=== PATIENT | female | born 1965 | race Caucasian/White ===

== ENCOUNTER 2017-07-12 06:30 | Day surgery (SDC) | payer OTHER ==
[~2017-07-12 06:30] MED LIST: Lactated Ringers 1,000 ML IV SCH
[2017-07-12] MEDS ORDERED: Propofol 200 MG/20 ML SDV ONE (08:01)
[2017-07-12] MEDS ORDERED: fentaNYL 100 MCG/2 ML SDV ONE (08:01)
[2017-07-12 09:11] VITALS: BP 125/72
--- NOTE | 2017-07-12 13:05 | OR ---
DATE OF SURGERY: 07/12/2017. REFERRING PROVIDER: Olamide Turner MD. PREOPERATIVE DIAGNOSES: 1. Screening colonoscopy. 2. No family history of colon cancer or colon polyps. POSTOPERATIVE DIAGNOSES: 1. Two rectal polyps removed using hot snare. a. A 1 cm polyp very near to the anal verge removed with hot snare during retroflexion. b. A 5 mm polyp towards the rectal vault removed using hot snare. 2. Prominent ileocecal valve with multiple cold biopsies taken. Submucosal tissue looked fatty and non-worrisome. 3. Normal distal ileum. PROCEDURE: Colonoscopy with polypectomy x2 using hot snare and cold biopsy x1 site. SURGEON: Sean Peterson M.D. ANESTHESIA: Monitored anesthesia care. BOWEL PREP: Good. DESCRIPTION OF PROCEDURE: Danial is a 51-year-old female was brought to the endoscopy suite after discussing risks and benefits of the procedure. Informed consent was obtained for conscious sedation and colonoscopy with or without biopsy and/or polypectomy. We also discussed possibility of missed lesions. Pre-procedure exam was unremarkable. IV, oxygen, and monitors were placed. The patient was placed in the left lateral decubitus position. Sedation was administered and a digital rectal exam was performed and unremarkable. Colonoscope was passed into the rectum and slowly advanced all the way to the cecum. Cecum was viewed and photographed. The ileocecal valve did have prominence to it. Multiple cold biopsied were taken. This prominence was very mobile and soft in texture. The submucosal tissue did have a fatty appearance to it. Ileocecal valve was intubated and distal ileum was normal. The colonoscope was slowly withdrawn. Mucosa closely observed in a direct circumferential manner. The ascending colon was unremarkable. The transverse colon was unremarkable. The descending colon was unremarkable. The sigmoid colon was unremarkable. Retroflexion was performed and rectal mucosa did reveal 2 polyps 1 about a centimeter in size and one 5 mm in size, both removed with hot snare. The larger of the 2 was located near the anal verge and was removed during retroflexion. Scope was removed. The patient tolerated the procedure well. The patient was monitored until that baseline status. Discharge instructions were reviewed and the patient was discharged in good condition. COMPLICATIONS: None. TOTAL TIME: 24 minutes. ESTIMATED BLOOD LOSS: About 1 mL. RECOMMENDATIONS/FOLLOW-UP: We will await results of path report to determine ideal followup interval. I will have the patient avoid any aspirin for the next 10 days and try to keep her stools soft to limit any irritation to the polypectomy site near the anal verge. I would like to kindly thank, Olamide Turner MD, for this referral. DMB: 07/12/2017 08:45:44 MODL: 07/12/2017 12:46:10 /[id number]
== END 2017-07-12 09:38 | disposition home or self-care (01) ==
LOC: VM.SDS 06:30
PROVIDERS: ATTEND Family Medicine
DX: Z12.11 Encounter for screening for malignant neoplasm of colon (principal); D12.8 Benign neoplasm of rectum; Z98.890 Other specified postprocedural states; Z98.51 Tubal ligation status; F17.210 Nicotine dependence, cigarettes, uncomplicated
CPT/HCPCS: 00810; 45380; 45385; J2704; J3010; J7120